=== PATIENT | female | born 1980 | race Caucasian/White ===

== ENCOUNTER 2018-11-12 10:57 | Emergency (ER) | payer BC ==
[~2018-11-12] VITALS: Ht 162.6 cm; Wt 68.0 kg
[2018-11-12] MEDS ORDERED: SILVER SULFADIAZINE 1% CREAM 50 GM TP ONE (11:15)
[2018-11-12] MEDS ORDERED: ONDANSETRON HCL 4 MG TABLET PO ONE (11:15)
[2018-11-12] MEDS ORDERED: MORPHINE SULFATE 2 MG/1 ML DISP.SYRIN IM ONE (11:15)
[2018-11-12] MEDS ORDERED: MORPHINE SULFATE 4 MG/1 ML DISP.SYRIN ONE (11:24)
[2018-11-12] MEDS ORDERED: ONDANSETRON HCL 4 MG TABLET ONE (11:25)
[2018-11-12] MEDS ORDERED: SILVER SULFADIAZINE 1% CREAM 25 GM TUBE TP ONE (11:26)
[2018-11-12] MEDS ORDERED: KETOROLAC TROMETHAMINE 30 MG INJ ONE (11:39)
--- NOTE | 2018-11-12 11:43 | NUR ---
PT IS IN ROOM #2B. DR BLANCAS EVALUATED THE PT.
[2018-11-12] MEDS ORDERED: KETOROLAC TROMETHAMINE 30 MG INJ IM ONE (11:45)
[2018-11-12] MEDS ORDERED: HYDROCODONE/APAP 10-325 MG TABLET PO ONE (12:00)
[2018-11-12] MEDS ORDERED: HYDROCODONE/APAP 10-325 MG TABLET ONE (12:05)
--- NOTE | 2018-11-12 12:11 | NUR ---
Patient discharged to home in stable conditon. Written and verbal after care instructions given. Patient verbalizes understanding of instructions.PT WALKS IN STEADY GAIT. PT NOT DRIVING, PT GOING HOME WITH SO.
[2018-11-12 12:13] VITALS: BP 119/41
--- NOTE | 2018-11-12 12:33 | NUR ---
PT HERE TO TAKE THE PT HOME.
== END 2018-11-12 12:33 | disposition home or self-care (01) ==
LOC: ER 10:57
DX: T23.201A Burn of second degree of right hand, unspecified site, initial encounter (principal); T23.231A Burn of second degree of multiple right fingers (nail), not including thumb, initial encounter; X19.XXXA Contact with other heat and hot substances, initial encounter; Y93.89 Activity, other specified; Y92.89 Other specified places as the place of occurrence of the external cause; Y99.8 Other external cause status
CPT/HCPCS: 16020; 96372 ×2; 99284; J1885; J2270; A4663; Q0162